=== PATIENT | male | born 1975 | race Caucasian/White ===

== ENCOUNTER 2023-07-03 23:23 | Emergency (ER) | payer OTHER, SELFPAY ==
[2023-07-03 23:26] VITALS: BP 126/88; PULSE 95; RESP 14; TEMP 37.3; O2SAT 96
[2023-07-03 23:45] LABS: Abs Immature Grans 0.01 10^3/uL (0.0-0.06); Absolute Basophil Count 0.05 10^3/uL (0.0-0.2); Absolute Eosinophil Count 0.06 10^3/uL (0.0-0.7); Absolute Lymphocyte Count 2.17 10^3/uL (1.2-3.4); Absolute Monocyte Count 0.59 10^3/uL (0.1-0.8); Absolute Neutrophil Count 3.75 10^3/uL (1.2-6.7); Basophils % 0.8; Eosinophils % 0.9; HCT 47.1 % (40.0-50.0); HGB 16.1 g/dL (13.5-17.5); Immature Grans % 0.2; Lymphocytes % 32.7; MCH 31.4 pg (27.0-33.0); MCHC 34.2 % (32.0-36.0); MCV 92 fL (80-95); MPV 8.5 fL (8.0-11.0); Monocytes % 8.9; Neutrophils % 56.5; Platelet Count 216 10^3/uL (130-400); RBC 5.12 10^6/uL (4.36-5.78); RDW 12.1 % (11.8-14.1); RDW-SD 41.4 fL; WBC 6.63 10^3/uL (4.4-10.8)
[2023-07-03] MEDS: Normal Saline 1,000 ML 125 ML IV (23:49)
[2023-07-03] MEDS: Ondansetron 4 MG/2 ML VIAL IVP (23:49)
[2023-07-03] MEDS: FAMOTIDINE 20 MG in Normal Saline 100 ML 400 MG IVPB (23:50)
[2023-07-03 23:58] VITALS: PULSE 99; RESP 17; O2SAT 97
[2023-07-04] VITALS (68 sets, daily range): BP systolic 102–126; BP diastolic 64–81; PULSE 78–109; RESP 10–21; O2SAT 89–99
--- NOTE | 2023-07-04 00:02 | ED.GENADUL_ITS ---
Discharge Plan Disposition Condition: Good Discharge Details Chief Complaint: ETOHWithdr Clinical Impression: Alcohol intoxication delirium with moderate or severe use disorder, Alcohol abuse ED Provider: Nishant Medrano Home Meds and New Rx's Prescriptions: No Action bupropion HCl [Wellbutrin SR] 150 mg tablet sustained-release 12 hr 450 mg PO DAILY emtricitabine-tenofovir alafen [Descovy] PO gabapentin PO Medical Decision Making Emergent evaluation of alcohol intoxication. At this time there is no suicidal ideation or attempt. Patient is requesting alcohol detox. He reports history of seizures with detox. At this time he is clinically intoxicated. Will monitor closely, check labs and reassess with sobriety for placement options. 0110: Labwork reviewed. No hypoglycemia. LFT derangement consistent with chronic alcohol use. Mild hypomagnesemia. Alcohol level significantly elevated. At this time the patient is hemodynamically stable and resting comfortably. No signs of withdrawal. 0630: patient sobering appropriately. Mom and girlfriend at bedside. Still denies SI. Still wanting help with sobriety and detox. Plan for care management evaluation in the morning. Will turn over to oncoming provider. Medical Records Medical records reviewed: Yes I reviewed the patient's medical records. Lab Data Lab results reviewed: Yes I reviewed the patient's lab results. HPI General Date/Time Provider Initiated Documentation: 07/03/23 23:30 . Limitations to Documentation: altered mental status . Information obtained by: EMS . HPI Narrative: 47-year-old gentleman without significant past medical history presents for evaluation of alcohol intoxication. He reports that he has had 1/5 of whisk[employer]kling Systemsjohnna. He is currently says that he has been drinking more because his 2 months ago and he is very sad. He denies any suicidal ideation. Denies any self-harm. Reports that he called his mom dusty because he wants help to stop drinking. His mom called 911 because he was so drunk she could not really understand what he was saying and was concerned for his safety. He denies any other drug use Related Data Home Medications Medication Instructions Recorded Confirmed bupropion HCl 150 mg tablet,12 hr 450 mg PO DAILY 07/03/23 07/03/23 sustained-release (Wellbutrin SR) emtricitabine-tenofovir alafen PO 07/03/23 gabapentin PO 07/03/23 Allergies Allergy/AdvReac Type Severity Reaction Status Date / Time No Known Allergies Allergy Unverified 07/03/23 23:51 General Stated Complaint: ETOHWithdr SONIA: 3 PFSH All Active Problems (Updated 07/04/23 @ 02:19 by Nishant Medrano MD) Alcohol abuse (Chronic) Alcohol intoxication delirium with moderate or severe use disorder (Acute) Social History Smoking/Tobacco Use Status: Never Smoking risk assessment performed?: Yes Alcohol Intake: current Alcohol Intake frequency: 3 or more drinks per day Alcohol type: hard liquor Drug use: Never Substance use type: does not use Do you feel safe at home: Yes Do you feel safe in your relationship?: Yes Exam Narrative Exam Narrative: Review of Systems: All systems reviewed & are unremarkable except as noted in HPI and below Well-developed, no acute distress NACT PERRL, injected conjunctiva RRR Unlabored respiratory effort Nondistended abdomen Extremities w/o deformity, no cyanosis, no edema No rashes or lesions. no focal neurologic deficits crying, no SI Course Vital Signs Vital signs: Vital Signs Temperature 37.3 C 07/03/23 23:26 Pulse 95 H 07/03/23 23:26 Respiratory Rate 14 07/03/23 23:26 Blood Pressure 126/88 07/03/23 23:26 Pulse Oximetry 96 07/03/23 23:26 Temperature 37.3 C 07/03/23 23:26 Temperature Source Tympanic 07/03/23 23:26 Pulse 95 H 07/03/23 23:26 Respiratory Rate 14 07/03/23 23:26 Respiratory Effort Normal, Non-Labored 07/03/23 23:34 Blood Pressure 126/88 07/03/23 23:26 Blood Pressure Position Supine 07/03/23 23:26 Pulse Oximetry 96 07/03/23 23:26 Oxygen Delivery Method Room Air 07/03/23 23:26 Oxygen Flow Rate 0 07/03/23 23:26 Lab/Test Results Lab/Test Results: Laboratory Tests Range/Units 07/03/23 23:37 WBC (4.4-10.8) 10^3/uL 6.63 RBC (4.36-5.78) 10^6/uL 5.12 Hgb (13.5-17.5) g/dL 16.1 Hct (40.0-50.0) % 47.1 MCV (80-95) fL 92 MCH (27.0-33.0) pg 31.4 MCHC (32.0-36.0) % 34.2 RDW (11.8-14.1) % 12.1 Plt Count (130-400) 10^3/uL 216 MPV (8.0-11.0) fL 8.5 Immature Gran % 0.2 Neutrophils % 56.5 Lymphocytes % 32.7 Monocytes % 8.9 Eosinophils % 0.9 Basophils % 0.8 Nucleated RBC % (0.0-0.3) % 0.0 Absolute Neutrophils (1.2-6.7) 10^3/uL 3.75 Absolute Lymphocytes (1.2-3.4) 10^3/uL 2.17 Absolute Monocytes (0.1-0.8) 10^3/uL 0.59 Absolute Eosinophils (0.0-0.7) 10^3/uL 0.06 Absolute Basophils (0.0-0.2) 10^3/uL 0.05 Sign Out Sign Out Data: Sign Out Comment: 47y M with chronic alcohol abuse presents with acute intoxication, requesting help getting sober. denies SI. Wants to see care management in the morning for resources. No signs of ETOH withdrawal thus far. Last updated by Nishant Medrano MD at 07/04/23 06:24 PAWSS Have you Been Recently Intoxicated or Drunk Within the Last 30 days?: Yes Have you Ever Experienced Previous Episodes of Alcohol Withdrawal?: Yes Have you ever Experienced Withdrawal Seizures?: Yes Have you ever Experienced Delirium Tremens(DT)s?: Yes Have you ever undergone Alcohol Rehabilitation Treatment (i.e, inpt ot outpatient treatment programs)?: Yes Have you ever Experienced Blackouts?: Yes Have you ever Combined Alcohol with other Downers within the last 90 days?: No Have you ever Combined Alcohol with any other Substance of Abuse during the last 90 days?: No Positive Blood Alcohol level on Presentation? [PCS.BAL]: Yes Evidence of Increased Autonomic Activity (i.e. HR>120, tremor, sweating, agitation, nausea)?: Yes Result: 8
[2023-07-04 00:03] LABS: ALT 135 U/L (16-63); AST 78 U/L (15-37); Albumin 3.9 g/dL (3.4-5.0); Alkaline Phosphatase 74 U/L (46-116); Anion Gap 10.3 mmol/L (3-11); BUN 14 mg/dL (7-18); Bilirubin, Total 0.6 mg/dL (0.2-1.0); CO2 30.7 mmol/L (21.0-32.0); CREATININE 1.2 mg/dL (0.70-1.30); Calcium 8.6 mg/dL (8.5-10.1); Chloride 101 mmol/L (98-107); ETHANOL BLOOD 420.1 mg/dL (<10); Estimated GFR 74.13 (mL/min/1.73m2); Glucose 108 mg/dL (74-106); Magnesium 1.6 mg/dL (1.8-2.4); Sodium 142 mmol/L (136-145); Total Protein 7.5 g/dL (6.4-8.2)
--- NOTE | 2023-07-04 01:48 | NUR.NOTE ---
pt stated still unable to urinate, fpj
--- NOTE | 2023-07-04 09:16 | W.EDPROG ---
Date of service: 07/04/23 Time of Service: 09:16 Medical Decision Making 9: 16 patient resting comfortably no acute distress. Requesting to leave. Is returning back to [place] has a meetings and alcohol counselor there as well as other resources. Sign Out Sign Out Data: Sign Out Comment: 47y M with chronic alcohol abuse presents with acute intoxication, requesting help getting sober. denies SI. Wants to see care management in the morning for resources. No signs of ETOH withdrawal thus far. Last updated by Nishant Medrano MD at 07/04/23 06:24 Discharge Plan Disposition Patient Disposition: Home Condition: Good Discharge Details Chief Complaint: ETOHWithdr Clinical Impression: Alcohol intoxication delirium with moderate or severe use disorder, Alcohol abuse Primary Care Provider: Rebecca,Local ED Provider: Fly Delgadillo Home Meds and New Rx's Prescriptions: No Action bupropion HCl [Wellbutrin SR] 150 mg tablet sustained-release 12 hr 450 mg PO DAILY emtricitabine-tenofovir alafen [Descovy] PO gabapentin PO Discharge Instructions Instructions: Abuse of Alcohol (ED)
--- NOTE | 2023-07-04 09:27 | NUR.NOTE ---
[facility] was paged for this patient. AFter the patient girlfriend came to desk to say patient was ready to leave, they are returning to [place] where he has an alcohol counselor and AA meetings that he is already been to. [facility] cancelled. Nursing Note:
== END 2023-07-04 09:31 | disposition home or self-care (01) ==
PROVIDERS: Emergency Medicine; Emergency Provider Emergency Medicine
DX: F10.121 Alcohol abuse with intoxication delirium (principal); F32.A Depression, unspecified; Y90.8 Blood alcohol level of 240 mg/100 ml or more
CPT/HCPCS: 00123; 36415; 80053; 96365; 96375; 99284; 80320; 83735; 85025; J2405